=== PATIENT | female | born 1985 | race Caucasian/White ===

== ENCOUNTER 2019-05-16 07:39 | Emergency (ER) | payer SELFPAY ==
[~2019-05-16] VITALS: Ht 170 cm; Wt 63.6 kg
--- NOTE | 2019-05-16 07:56 | ED Back Pain ---
General Chief Complaint: Back Problems Stated Complaint: BACK PAIN Source of Information: Patient Exam Limitations: No Limitations (VICENTE MEEKS) History of Present Illness Date Seen by Provider: May 16, 2019 Time Seen by Provider: 07:45 Initial Comments Patient presents to the ED today with a five day history of lower back pain after using an exercise ball on Saturday. The pain is located along her lumbar and sacral spine and occasionally radiates into her upper legs. Movement makes the pain worse and rest helps alleviate her symptoms. She did take a dose of I buprofen last night but states it did not touch her pain so has not taken anything since last night. Timing/Duration: 5-6 Days Severity: Mild Pain/Injury Location: Back Radiation: Upper Legs Method of Injury: Other (Exercise) Modifying Factors: Improves With Rest Associated Symptoms: lower back pain (VICENTE MEEKS) Associated Symptoms: muscle spasms; No weakness, No numbness in legs/feet, No tingling in legs/feet, No sensory/motor loss; lower back pain; No loss of bladder control, No loss of bowel control (DARIELA STAHL MD) Allergies and Home Medications Allergies Coded Allergies: Penicillins (Verified Allergy, Unknown, 05/16/19) Patient Home Medication List Home Medication List Reviewed: Yes (DARIELA STAHL MD) Review of Systems Constitutional: no symptoms reported EENTM: no symptoms reported Respiratory: no symptoms reported Cardiovascular: no symptoms reported Gastrointestinal: no symptoms reported Genitourinary: no symptoms reported : No Musculoskeletal: see HPI Skin: see HPI Psychiatric/Neurological: See HPI (VICENTE MEEKS) Respiratory: no symptoms reported Cardiovascular: no symptoms reported Musculoskeletal: back pain, muscle pain; No neck pain (DARIELA STAHL MD) Past Rizpssh-Zxywmc-Cyjfuq Hx Past Med/Social Hx: Reviewed Nursing Past Med/Soc Hx (DARIELA STAHL MD) Patient Social History Recent Foreign Travel: No Contact w/Someone Who Travel: No (VICENTE MEEKS) Physical Exam Vital Signs Vital Signs - First Documented 05/16/19 07:46 Temp 36.8 Pulse 92 Resp 16 B/P (MAP) 136/93 (107) Pulse Ox 99 O2 Delivery Room Air (DARIELA STAHL MD) Vital Signs Capillary Refill : (VICENTE MEEKS STUDENT) Height, Weight, BMI Height: '" Weight: lbs. oz. kg; BMI Method: General Appearance: Mild Distress HEENT: PERRL/EOMI, Pharynx Normal Neck: Full Range of Motion, Normal Inspection Cardiovascular: Regular Rate, Rhythm, No Edema, No Gallop, No JVD, No Murmur, Normal Peripheral Pulses Respiratory: Chest Non Tender, Lungs Clear, Normal Breath Sounds, No Accessory Muscle Use, No Respiratory Distress Peripheral Pulses: 2+ Dorsalis Pedis (R), 2+ Left Dors-Pedis (L), 2+ Radial Pulses (R), 2+ Radial Pulses (L) Gastrointestinal: Normal Bowel Sounds, No Organomegaly, No Pulsatile Mass, Non Tender, Soft Back: Decreased Range of Motion, Vertebral Tenderness Extremity: Normal Capillary Refill, Normal Inspection, No Pedal Edema Neurologic/Psychiatric: Alert, Oriented x3, Normal Mood/Affect Skin: Normal Color, Warm/Dry Lymphatic: No Adenopathy (VICENTE MEEKS STUDENT) General Appearance: WD/WN, Mild Distress Cardiovascular: Regular Rate, Rhythm, No Murmur Respiratory: Lungs Clear, Normal Breath Sounds Gastrointestinal: Non Tender, Soft Back: Decreased Range of Motion, Muscle Spasm, Other (tender along the SI joint bilateral) Neurologic/Psychiatric: Alert, Oriented x3, Normal Mood/Affect (DARIELA STAHL MD) Progress/Results/Core Measures Results/Orders My Orders Orders - DARIELA STAHL MD Toradol 60 Mg Im (05/16/19 08:27) (DARIELA STAHL MD) Vital Signs/I&O 05/16/19 07:46 Temp 36.8 Pulse 92 Resp 16 B/P (MAP) 136/93 (107) Pulse Ox 99 O2 Delivery Room Air (DARIELA STAHL MD) Progress Progress Note : Progress Note Seen and evaluated the patient and agree with above except as indicated. Have directed the plan of care. Toradol 60 mg IM ordered. We will continue outpatient steroids as she states these usually works well for her. Discharged home with return precautions. Patient verbalize understanding instructions and agreement with plan. (DARIELA STAHL MD) Departure Impression Primary Impression: Lumbar radiculopathy Disposition: HOME, SELF-CARE Condition: Improved Departure-Patient Inst. Decision time for Depature: :31 (DARIELA STAHL MD) Referrals: NO,LOCAL PHYSICIAN (PCP/Family) Primary Care Physician Patient Instructions: Radiculopathy (DC) Add. Discharge Instructions: All discharge instructions reviewed with patient and/or family. Voiced understanding. You may take Aleve or the generic one or 2 tablets twice daily for the next 3-7 days as needed for your pain. Drink plenty of fluids. You may take Tylenol/acetaminophen 1000 mg every 6-8 hours as needed for pain. Do not exceed 4000 mg in 24 hours. You may use [id number] Icy Hot with lidocaine patches, Aspercreme with lidocaine patches, Salonpas with lidocaine patches or similar items to area of concern per package directions. Return for worse pain, weakness, numbness between your legs, difficulty walking or going to the bathroom or other concerns as needed. Scripts Prednisone (Prednisone) 20 Mg Tab 40 MG PO DAILY, #14 TAB 0 Refills Prov: DARIELA STAHL MD 05/16/19 VICENTE MEEKS STUDENT May 16, 2019 07:56 DARIELA STAHL MD May 16, 2019 08:35
[2019-05-16] MEDS ORDERED: KETOROLAC 60 MG/2 ML VIAL IM STA (08:27)
[2019-05-16] MEDS ORDERED: PRD20T PO (08:31)
[2019-05-16 08:48] VITALS: BP 136/93
== END 2019-05-16 08:48 | disposition home or self-care (01) ==
LOC: ER 07:41
DX: M54.16 Radiculopathy, lumbar region (principal); Z88.0 Allergy status to penicillin; X58.XXXA Exposure to other specified factors, initial encounter
CPT/HCPCS: 84703; 96372; 99284

== ENCOUNTER 2022-04-10 08:04 | Emergency (ER) | payer OTHER ==
[~2022-04-10] VITALS: Ht 170 cm; Wt 68.5 kg
[~2022-04-10 08:04] MED LIST: PRD20T PO
[2022-04-10] MEDS ORDERED: FISH OIL (08:26)
[2022-04-10] MEDS ORDERED: FLUO10CA29 PO (08:26)
--- NOTE | 2022-04-10 10:18 | Diagnostic Imaging Report ---
Indication: Right forearm injury AP and lateral views of right forearm reveal no acute fracture or malalignment. There is no lytic or stenotic lesion. There is threaded screw along the medial aspect of the scaphoid bone. This may protrude slightly at the scapholunate joint space. IMPRESSION: No acute right forearm abnormality identified. Internally fixed scaphoid bone is noted. Proximal aspect of the screw may involve the scapholunate joint space. Dedicated wrist imaging may be of value. Dictated by: Dictated on workstation # [id number]
--- NOTE | 2022-04-10 10:19 | Diagnostic Imaging Report ---
INDICATION: Right hand pain AP, oblique and lateral views of the right hand are obtained. AP, oblique and lateral views of right wrist are obtained. No acute fracture or malalignment is identified. There is a threaded screw within the right scaphoid bone. No evidence of residual fracture or other complication. IMPRESSION: No acute abnormality is detected. Dictated by: Dictated on workstation # [id number]
--- NOTE | 2022-04-10 10:32 | ED General ---
General Chief Complaint: Upper Extremity Stated Complaint: BACK PAIN RIGHT WRIST/ARM INJURY Nursing Triage Note: PT STATES PAIN IN RT WRIST, HAS A PIN IN THIS WRIST FROM INJURY 20 YRS AGO. PRESSURE WAS PUT ON HER FOREARM TO RELIEVE THE PAIN IN HER WRIST, SOESN'T KNOW IF THAT IS WHY IT STILL HURTS. ALSO PAIN IN LOW BACK, LT HIP AND DOWN LT LEG. WAS RECENTLY ON PREDNISONE FOR THIS Source of Information: Patient Exam Limitations: No Limitations History of Present Illness Date Seen by Provider: Apr 10, 2022 Time Seen by Provider: 09:39 Initial Comments This 37-year-old woman presents to the emergency room with complaints of right hand and wrist injury and pain that occurred on April 07. She reports she was simply reaching into a cooler to lift a beer when she had sudden pain. She subsequently developed mild swelling around the thenar portion of her hand and the distal wrist. She has associated bruising as well. She has history of a remote right wrist fracture with a screw in the scaphoid. She has significant deficit in flexion of the right thumb. She is unable to flex the IP joint. Sensation is intact. She has secondary complaints of pain in the left SI joint area that radiates into the thigh at times. She had a recent treatment on March 28 with steroids from her primary care provider. This improved some but did not completely resolve the symptoms. Her primary care provider is Adelina Mejia. Allergies and Home Medications Allergies Coded Allergies: Penicillins (Verified Allergy, Unknown, 05/16/19) Patient Home Medication List Home Medication List Reviewed: Yes Fluoxetine HCl (Prozac) 10 Mg Capsule, 10 MG PO DAILY, (Reported) Entered as Reported by: RONDA SHAFFER on 04/10/22825 Last Action: New Order Prednisone (Prednisone) 20 Mg Tab, 40 MG PO DAILY Prescribed by: DARIELA STAHL on 05/16/19830 [Fish Oil] , (Reported) Entered as Reported by: RONDA SHAFFER on 04/10/22825 Last Action: New Order Review of Systems Review of Systems Constitutional: no symptoms reported EENTM: no symptoms reported Respiratory: no symptoms reported Cardiovascular: no symptoms reported Gastrointestinal: no symptoms reported Genitourinary: no symptoms reported : No Musculoskeletal: see HPI Skin: no symptoms reported Psychiatric/Neurological: See HPI Hematologic/Lymphatic: No Symptoms Reported Immunological/Allergic: no symptoms reported Past Dahpsxx-Eooeen-Tdbctl Hx Patient Social History Tobacco Use?: No Substance use?: Yes Substance type: Marijuana Alcohol Use?: Yes Alcohol type: Beer Seasonal Allergies Seasonal Allergies: No Past Medical History Surgery/Hospitalization HX: PIN IN RT WRIST Surgeries: Yes Orthopedic (Screw in the right scaphoid) Respiratory: No Cardiac: No Neurological: No Last Menstrual Period: Mar 27, 2022 Genitourinary: No Gastrointestinal: No Musculoskeletal: No Endocrine: No HEENT: No Cancer: No Psychosocial: No Integumentary: No Physical Exam Vital Signs Vital Signs - First Documented 04/10/22 08:19 Temp 37.1 Pulse 100 Resp 18 B/P (MAP) 129/88 (102) Pulse Ox 100 O2 Delivery Room Air Capillary Refill : Less Than 3 Seconds Height, Weight, BMI Height: '" Weight: lbs. oz. kg; 23.00 BMI Method: General Appearance: No Apparent Distress, WD/WN HEENT: PERRL/EOMI, Normal ENT Inspection Neck: Normal Inspection Respiratory: Lungs Clear, Normal Breath Sounds, No Accessory Muscle Use Cardiovascular: Regular Rate, Rhythm, No Edema, No Murmur Back: Normal Inspection, No Vertebral Tenderness, Other (Tenderness in the left SI joint region) Extremity: Other (Pain and tenderness in the thenar aspect of the hand and up into the radial side of the wrist. There is scattered bruising in these areas as well, especially in the thenar region. Extension is intact throughout the wrist and fingers but flexion is lacking in the IP joint of the thumb. Sensation is intact throughout. Capillary refill is normal.) Neurologic/Psychiatric: Alert, Oriented x3, No Motor/Sensory Deficits, Normal Mood/Affect, protective signal superintendent II-XII Norm as Tested Skin: Normal Color, Warm/Dry, Ecchymosis Progress/Results/Core Measures Suspected Sepsis SIRS Temperature: Pulse: 100 Respiratory Rate: 18 Blood Pressure 129 /88 Mean: 102 Results/Orders My Orders Orders - ASA ROBERTS MD Forearm, Right, 2 Views (04/10/22 09:58) Hand, Right, 3 Views (04/10/22 09:58) Vital Signs/I&O 04/10/22 04/10/22 08:19 12:06 Temp 37.1 37.1 Pulse 100 99 Resp 18 18 B/P (MAP) 129/88 (102) 129/88 Pulse Ox 100 100 O2 Delivery Room Air Room Air Capillary Refill : Less Than 3 Seconds Blood Pressure Mean: 102 Progress Note : Progress Note X-rays were reviewed by me. I contacted Dr. Quach and discussed the case with him. He believes this is a flexor pollicis longus tendon rupture. He recommends prompt referral to a hand surgeon. I was able to get in touch with Dr. Jaeger. I have arranged contact between the patient and the [address]. Patient was fitted with a universal splint which improved her discomfort. Diagnostic Imaging Diagonstic Imaging: Xray Plain Films/CT/US/NM/MRI: hand Comments Right hand x-ray viewed by me and report reviewed. See report below: NAME: KEVEN BISWAS [facility] REC#: [id number] PT STATUS: REG ER : 1985 PHYSICIAN: ASA ROBERTS MD ADMIT DATE: 04/10/22/ER Draft * Date of Exam:04/10/22 HAND, RIGHT, 3 VIEWS INDICATION: Right hand pain AP, oblique and lateral views of the right hand are obtained. AP, oblique and lateral views of right wrist are obtained. No acute fracture or malalignment is identified. There is a threaded screw within the right scaphoid bone. No evidence of residual fracture or other complication. IMPRESSION: No acute abnormality is detected. Dictated on workstation # [id number] Dict: 04/10/22 1016 Trans: 04/10/22 1018 [facility] [id number] Interpreted by: GEETA YODER MD Diagonstic Imaging: Xray Plain Films/CT/US/NM/MRI: forearm Comments Right forearm x-ray viewed by me and report reviewed. See report below: NAME: KEVEN BISWAS [facility] REC#: [id number] PT STATUS: REG ER : 1985 PHYSICIAN: ASA ROBERTS MD ADMIT DATE: 04/10/22/ER Draft Date of Exam:04/10/22 FOREARM, RIGHT, 2 VIEWS Indication: Right forearm injury AP and lateral views of right forearm reveal no acute fracture or malalignment. There is no lytic or stenotic lesion. There is threaded screw along the medial aspect of the scaphoid bone. This may protrude slightly at the scapholunate joint space. IMPRESSION: No acute right forearm abnormality identified. Internally fixed scaphoid bone is noted. Proximal aspect of the screw may involve the scapholunate joint space. Dedicated wrist imaging may be of value. Dictated on workstation # [id number] Dict: 04/10/22 1014 Trans: 04/10/22 1017 [facility] [id number] Interpreted by: GEETA YODER MD Departure Impression Primary Impression: Rupture of flexor pollicis longus tendon Additional Impressions: Pain of left sacroiliac joint Radiculopathy Qualified Codes: M54.10 - Radiculopathy, site unspecified Disposition: HOME, SELF-CARE Condition: Stable Departure-Patient Inst. Decision time for Depature: 11:41 Referrals: ELVA JAEGER,LOCAL PHYSICIAN (PCP) Primary Care Physician Patient Instructions: Radiculopathy, Sacroiliac Joint Pain ED Add. Discharge Instructions: You likely have a rupture of the flexor pollicis longus tendon. You need to follow-up with a hand surgeon as soon as possible. Dr. Roberts from the ER has left a message with the office of Dr. Jaeger and Dr. Gibbs at the [address] in [place]. If you do not hear from them by the end of the day, give them a call at [phone] ex 6. To treat pain you may use ibuprofen up to 600 mg every 6 hours and Tylenol (acetaminophen) up to 1000 mg every 6 hours as needed. You may use Tylenol and ibuprofen together or alternate them every 3 hours. Icing in 20-minute intervals and elevating may also be helpful. Compression with an Michael wrap or a hand/wrist splint may reduce pain. Your pain in the SI joint region may be simply due to inflammation of that joint or may be related to nerve compression from your lumbar spine. If you do not get notable relief from consistent use of NSAID medications such as ibuprofen, then follow-up with your primary care provider to discuss other treatment modalities such as physical therapy, chiropractics, targeted steroid injection, etc. Please be sure to wear well cushioned and supportive footwear. Avoid shoes with hard soles, sandals, etc. Also avoid placing any items such as a phone or pocketbook in your back pocket. Call with questions or concerns or if you are having difficulty making contact for follow-up with the hand surgeon. Return to care if you have worsening symptoms despite following these instructions. All discharge instructions reviewed with patient and/or family. Voiced un derstanding. Work/School Note: Work Release Form Date Seen in the Emergency Department: Apr 10, 2022 Return to Work: Apr 13, 2022 Other Restrictions Listed Below: Use splint on Rt wrist. Avoid heavy gripping, lifting, pulling w/ Rt hand. Copy Copies To 1: ELVA JAEGER JOSHUA T MD Apr 10, 2022 10:32
[2022-04-10 12:06] VITALS: BP 129/88
== END 2022-04-10 12:06 | disposition home or self-care (01) ==
LOC: EDUNIT# 08:04 → ER 08:07
DX: S66.011A Strain of long flexor muscle, fascia and tendon of right thumb at wrist and hand level, initial encounter (principal); M54.18 Radiculopathy, sacral and sacrococcygeal region; Z28.310 Unvaccinated for COVID-19; X50.0XXA Overexertion from strenuous movement or load, initial encounter
CPT/HCPCS: 73090; 73130